=== PATIENT | female | born 1945 | race Caucasian/White ===

== ENCOUNTER 2017-10-02 14:24 | Observation (INO) | payer MEDICARE ==
[~2017-10-02 14:24] MED LIST: ISOVUE-370 76%-LOCM 1 ML ONE
[2017-10-02] MEDS ORDERED: Nitroglycerin 2% Ointment 1 INCH/1 GM Packet ONE (14:55)
[2017-10-02 15:00] LABS: #Basophils 0.1 thou/uL (0.0-0.2); #Eosinphils 0.1 thou/uL (0.0-0.7); #Lymphocytes 2.6 thou/uL (1.20-3.40); #Monocytes 1.6 thou/uL (0.11-0.59); #Neutrophils 8.1 thou/uL (1.40-6.50); %Basophils 0.6 % (0.0-1.0); %Lymphocytes 20.6 % (21.0-51.0); %Monocytes 13.2 % (0.0-10.0); %Neutrophils 64.6 % (42.0-75.0); Hemoglobin 13.8 g/dL (12.0-16.0); Mean Corpuscular HGB CONC 32.9 g/dL (32.0-36.0); Mean Corpuscular Hemoglobin 32.9 pg (27.0-31.0); Mean Platelet Volume 8.4 fL (7.4-10.4); Platelet Count 282 thou/uL (130-400); Red Blood Cell (RBC) Count 4.21 mill/uL (4.20-5.40); White Blood Cell (WBC) Count 12.5 thou/uL (4.8-10.8)
[2017-10-02 15:19] LABS: ALT (SGPT) 16 U/L (8-55); AST (SGOT) 14 U/L (5-34); Albumin 4.2 g/dL (3.4-4.8); Alkaline Phosphatase 107 U/L (40-150); Anion Gap 15 mmol/L (10-20); BUN (Urea Nitrogen) 15 mg/dL (9.8-20.1); Bilirubin, Total 0.5 mg/dL (0.2-1.2); CK (CPK) 34 U/L (29-168); Calc. Creatinine Clearance 0 mL/min (70-130); Calcium 9.9 mg/dL (7.8-10.44); Carbon Dioxide 23 mmol/L (23-31); Chloride 102 mmol/L (98-107); Estimated GFR-MDRD 75; Globulin 3.4 g/dL (2.4-3.5); Glucose 96 mg/dL (83-110); Lipase 52 U/L (8-78); Potassium 4.2 mmol/L (3.5-5.1); Protein, Total 7.6 g/dL (6.0-8.3); Sodium 136 mmol/L (136-145)
--- NOTE | 2017-10-02 15:22 | RAD ---
PORTABLE CHEST: 10/02/2017 PROVIDED CLINICAL HISTORY: Chest pain. COMPARISON: 06/20/2008 FINDINGS: Cardiac and mediastinal silhouette are within normal limits. Lungs appear clear. There is no pleura l fluid or pneumothorax apparent. IMPRESSION: No evidence for an acute cardiopulmonary process. POS: [facility]
[2017-10-02 15:23] LABS: CKMB 0.8 ng/mL (0-6.6); Troponin I Less than 0.010 ng/mL (< 0.028)
--- NOTE | 2017-10-02 18:03 | CT ---
CT PULMONARY ANGIOGRAM WITH IV CONTRAST AND 3D POSTPROCESSIN10/02/17 HISTORY: Chest pain. FINDINGS: There is poor opacification of the pulmonary artery vasculature. The exam is nondiagnostic for evalua tion of pulmonary embolism. The thoracic aorta is opacified without aneurysmal dissection. No pleural or pericardial effusions are seen. There is evidence of old granulomatous disease. No pneumothoraces , lobar consolidation, or other masses identified. There are degenerative changes in the spine. IMPRESSION: Exam is nondiagnostic for pulmonary embolism. POS: [facility]
[2017-10-02 18:21] LABS: Troponin I Less than 0.010 ng/mL (< 0.028)
[2017-10-02] MEDS ORDERED: Acetaminophen 325 MG TAB PO PRN (20:10)
[2017-10-02 20:32] VITALS: BMI 31.7
[2017-10-02 21:24] LABS: Troponin I Less than 0.010 ng/mL (< 0.028)
[2017-10-02] MEDS ORDERED: Ondansetron HCl/PF 4 MG/2 ML Vial IVP PRN (22:34)
--- NOTE | 2017-10-03 02:41 | HP ---
PRIMARY CARE PHYSICIAN: [facility]. CODE STATUS: The patient is DNR/DNI. Patient has stated "these are my wishes, also my children's, m y though is something different. TIME OF EVALUATION: 7:50 p.m. CHIEF COMPLAINT: Chest pain. HISTORY OF PRESENT ILLNESS: This is a 72-year-old female patient with a past medical history of skin cancer, TIA, coronary artery disease, hyperlipidemia, hypertension who came to the hospital after more ving chest pain that was located on the left lower rib cage, radiating to the back, when severe 6/10. The patient reported the pain was on and off, worsened by exertion. No alleviating factors. The p ain started around 2:00 p.m. Pain was dull in nature. REVIEW OF SYSTEMS: Constitutional: No fever, no chills. Generalized weakness. Respiratory: No co ugh or sputum production. No shortness of breath. Cardiovascular: No chest pain, no palpitations, no shortness of breath. Gastrointestinal: No nausea, vomiting, diarrhea, or abdominal pain. 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 Genitourinary: No burning on urination. Extremities : No leg swelling. All other systems were reviewed and were negative except for the findings geno samuel above. PAST MEDICAL HISTORY: She has a history of TIA, coronary artery disease, hyperlipidemia, high choles terol, hypertension, history of pneumonia, history of recurrent urinary tract infection. PAST SURGICAL HISTORY: Skin cancer, , hysterectomy, tonsillectomy. PSYCHIATRIC HISTORY: No previous psychiatric history. SOCIAL HISTORY: No alcohol. No drugs. No smoking history. DRUG ALLERGIES: MORPHINE, SULFA. REPORTED MEDICATIONS: No reported medications. PHYSICAL EXAMINATION: VITAL SIGNS: On presentation, blood pressure 140/58, with a heart rate of 92, respiratory rate was 2 0, temperature 99.4, pain was 8/10, oxygen saturation 98% on room air. GENERAL APPEARANCE: Patient is alert, oriented, no acute distress. HEENT: Normal conjunctivae. Moist oral mucosa. Anicteric. NECK: No JVD. RESPIRATORY: Bilateral air entry. No rales, no wheezing. Symmetric expansion. CARDIOVASCULAR: Normal rate, regular rhythm. No murmurs, no gallop, no edema. ABDOMEN: Soft, normal bowel sounds. MUSCULOSKELETAL: Baseline range of motion and strength. No tenderness. SKIN: Warm and intact. No pallor, no rash, no redness. NEUROLOGIC: Baseline sensorium. No evidence of any focal weakness. Baseline speech. Cranial nerve s seem to be intact. PSYCHIATRIC: The patient is in a good mood. No anxiety, oriented, optimal judgment. IMAGING: EKG was reviewed. The patient has normal sinus rhythm with left ventricular hypertrophy wi th repolarization abnormalities, QRS 88, [place] 126. Ventricular rate 90, QT corrected 413. Chest x-ray was done, it showed no evidence for any acute pulmonary process. The chest CT angio was done and re ported as nondiagnostic for pulmonary embolism. LABORATORY DATA: Labs are reviewed. The patient has white count 12.5, hemoglobin 13.9, MCV 100, kirt telet count 282. D-dimer 0.8. Chemistry was negative. LFTs were negative. Kidney function was nor mal. Beta natriuretic peptide was normal. Troponin was negative x3. ASSESSMENT AND PLAN: The patient was placed in the hospital with following medical problem: 1. Chest pain, rule out acute coronary syndrome. The patient has risk factors for coronary artery d isease, including hypertension, hyperlipidemia. We will monitor on tele, plan to do a stress test in the morning. The risks and benefits have been discussed with the patient and she is agreeable to go for testing in the morning. We will follow results, will treat accordingly. 2. Controlled hypertension, reconcile home medications and adjust treatment as needed. 3. Hyperlipidemia, low cholesterol diet is advised.
[2017-10-03 05:31] LABS: #Basophils 0.1 thou/uL (0.0-0.2); #Eosinphils 0.2 thou/uL (0.0-0.7); #Lymphocytes 2.6 thou/uL (1.20-3.40); #Monocytes 1.6 thou/uL (0.11-0.59); #Neutrophils 6.9 thou/uL (1.40-6.50); %Basophils 0.5 % (0.0-1.0); %Eosinophils 1.4 % (0.0-10.0); %Lymphocytes 23.1 % (21.0-51.0); %Monocytes 13.9 % (0.0-10.0); Hemoglobin 13.4 g/dL (12.0-16.0); Mean Corpuscular HGB CONC 34.1 g/dL (32.0-36.0); Mean Corpuscular Hemoglobin 33.5 pg (27.0-31.0); Mean Corpuscular Volume 98.5 fL (78.0-98.0); Mean Platelet Volume 8.5 fL (7.4-10.4); Platelet Count 265 thou/uL (130-400); RBC Distribution Width 12.1 % (11.5-14.5); Red Blood Cell (RBC) Count 3.99 mill/uL (4.20-5.40); White Blood Cell (WBC) Count 11.3 thou/uL (4.8-10.8)
[2017-10-03 05:48] LABS: Anion Gap 16 mmol/L (10-20); BUN (Urea Nitrogen) 14 mg/dL (9.8-20.1); Calc. Creatinine Clearance 86 mL/min (70-130); Calcium 9.1 mg/dL (7.8-10.44); Carbon Dioxide 20 mmol/L (23-31); Chloride 104 mmol/L (98-107); Estimated GFR-MDRD 82; Glucose 117 mg/dL (83-110); Potassium 3.7 mmol/L (3.5-5.1); Sodium 136 mmol/L (136-145)
[2017-10-03] MEDS ORDERED: Zolpidem Tartrate 5 MG TAB PO PRN (08:16)
[2017-10-03] MEDS ORDERED: Loratadine 10 MG TAB PO PRN (08:16)
[2017-10-03] MEDS ORDERED: Senokot 8.6 MG TAB PO PRN (08:16)
[2017-10-03] MEDS ORDERED: Eucerin (Mineral Oil/Petrolatum,White) 30 gm Jar TOP PRN (08:16)
[2017-10-03] MEDS ORDERED: Ondansetron ODT 4 MG TAB PO PRN (08:16)
[2017-10-03] MEDS ORDERED: Acetaminophen 325 MG TAB PO PRN (08:16)
[2017-10-03] MEDS ORDERED: Chloraseptic Spray 180 ml Bottle PO PRN (08:16)
[2017-10-03] MEDS ORDERED: Diabetic Tussin 200 MG/10 ML UDCUP PO PRN (08:16)
[2017-10-03] MEDS ORDERED: Milk Of Magnesia 30 ML UDCUP PO PRN (08:16)
[2017-10-03] MEDS ORDERED: Mag-Al 1200 mg/1200 mg/30 ML UDCUP PO PRN (08:16)
[2017-10-03] MEDS ORDERED: Nitroglycerin 0.4 MG TAB (25 Tab Bottle) SL PRN (08:16)
[2017-10-03] MEDS ORDERED: Artificial Tears 18 DROP/0.9 ML EA EYE PRN (08:16)
[2017-10-03] MEDS ORDERED: Loperamide HCl 2 MG CAP PO PRN (08:16)
[2017-10-03] MEDS ORDERED: Sodium Chloride 0.65% Nasal 44 ML BOT EA NARE PRN (08:16)
[2017-10-03] MEDS ORDERED: hydrALAZINE 20 MG/ML VIAL SLOW IVP PRN (08:16)
[2017-10-03] MEDS ORDERED: Famotidine 20 MG TAB PO PRN (08:16)
[2017-10-03 08:37] LABS: Cardiac Risk 3.6 (Less than 4.5)
[2017-10-03] MEDS ORDERED: Aspirin 325 MG TAB PO SCH (09:00)
[2017-10-03] MEDS ORDERED: Losartan 25 MG TAB PO SCH (09:00)
[2017-10-03] MEDS ORDERED: Enoxaparin Sodium 40 MG/0.4 ML SYRINGE SC SCH (09:00)
[2017-10-03] MEDS ORDERED: ADENOSINE 60 MG/20 ML VIAL ONE (09:56)
--- NOTE | 2017-10-03 13:16 | PDOC.PN ---
- Subjective Encounter Start Date: 10/03/17 Encounter Start Time: 07:30 -: old records requested/rev Patient seen and examined. No new complaints. No overnight events - Objective Resuscitation Status: Resuscitation Status DNR:Do Not Resuscitate MAR Reviewed: Yes Vital Signs & Weight: Vital Signs (12 hours) Temp Pulse Resp BP BP Pulse Ox 10/03/17 08:00 98.3 F 84 20 10/03/17 07:15 98.3 F 84 20 127/60 95 10/03/17 04:18 98.4 F 80 16 116/56 L 94 L Weight Weight 163 lb 1 oz I&O: 10/02/17 10/03/17 10/04/17 06:59 06:59 06:59 Intake Total 760 Output Total 400 Balance 360 Result Diagrams: 10/03/17 04:23 10/03/17 04:23 Radiology Reviewed by me: Yes EKG Reviewed by me: Yes Phys Exam - Physical Examination Constitutional: NAD HEENT: PERRLA, moist MMs, sclera anicteric Neck: no JVD, supple Respiratory: no wheezing, no rales, no rhonchi Cardiovascular: RRR, no significant murmur, no rub Gastrointestinal: soft, non-tender, no distention, positive bowel sounds Musculoskeletal: no edema, pulses present Neurological: non-focal, normal sensation, moves all 4 limbs Psychiatric: normal affect, A&O x 3 Skin: no rash, normal turgor Dx/Plan (1) Chest pain Code(s): R07.9 - CHEST PAIN, UNSPECIFIED Status: Acute (2) Hypertension Code(s): I10 - ESSENTIAL (PRIMARY) HYPERTENSION Status: Chronic (3) Obesity (BMI 30.0-34.9) Code(s): E66.9 - OBESITY, UNSPECIFIED Status: Chronic (4) Dyslipidemia Code(s): E78.5 - HYPERLIPIDEMIA, UNSPECIFIED Status: Chronic - Plan cont current plan of care, plan discussed w/ family * medication reviewed as below * symptomatic treatment * today stress test, if negative will discharge. Review of Systems - Review of Systems Eyes: negative: Pain, Vision Change, Conjunctivae Inflammation, Eyelid Inflammation, Redness, Other ENT: negative: Ear Pain, Ear Discharge, Nose Pain, Nose Discharge, Nose Congestion, Mouth Pain, Mouth Swelling, Throat Pain, Throat Swelling, Other Respiratory: negative: Cough, Dry, Shortness of Breath, Hemoptysis, SOB with Excertion, Pleuritic Pain, Sputum, Wheezing Cardiovascular: negative: chest pain, palpitations, orthopnea, paroxysmal nocturnal dyspnea, edema, light headedness, other Gastrointestinal: negative: Nausea, Vomiting, Abdominal Pain, Diarrhea, Constipation, Melena, Hematochezia, Other Genitourinary: negative: Dysuria, Frequency, Incontinence, Hematuria, Retention , Other Musculoskeletal: negative: Neck Pain, Shoulder Pain, Arm Pain, Back Pain, Hand Pain, Leg Pain, Foot Pain, Other Skin: negative: Rash, Lesions, Davis, Bruising, Other - Medications/Allergies Allergies/Adverse Reactions: Allergies Allergy/AdvReac Type Severity Reaction Status Date / Time morphine Allergy Rash Verified 10/02/17 22:02 Sulfa (Sulfonamide Allergy Rash Verified 10/02/17 22:04 Antibiotics) Medications: Current Medications Acetaminophen (Tylenol) 650 mg PO Q4H PRN PRN Reason: Headache/Fever or Mild Pain Al Hydroxide/Mg Hydroxide (Maalox) 15 ml PO Q4H PRN PRN Reason: Heartburn or Indigestion Artificial Tears (Tears Naturale) 0 drop EA EYE PRN PRN PRN Reason: Dry Eyes Aspirin (Aspirin) 325 mg PO DAILY [facility] Last Admin: 10/03/17 10:09 Dose: Not Given Enoxaparin Sodium (Lovenox) 40 mg SC 0900 [facility] Last Admin: 10/03/17 10:09 Dose: Not Given Famotidine (Pepcid) 20 mg PO BIDPRN PRN PRN Reason: Heartburn or Indigestion Guaifenesin (Robitussin Sf) 200 mg PO Q4H PRN PRN Reason: Cough Hydralazine HCl (Apresoline) 10 mg SLOW IVP Q4H PRN PRN Reason: Systolic BP > 180 Loperamide HCl (Imodium) 2 mg PO PRN PRN PRN Reason: Diarrhea/Loose Stools Loratadine (Claritin) 10 mg PO DAILYPRN PRN PRN Reason: Sinus Symptoms Losartan Potassium (Cozaar) 25 mg PO BID [facility] Last Admin: 10/03/17 10:10 Dose: Not Given Magnesium Hydroxide (Milk Of Magnesium) 30 ml PO DAILYPRN PRN PRN Reason: Constipation Mineral Oil/White Petrolatum (Eucerin Cream) 0 gm TOP BIDPRN PRN PRN Reason: Dry Skin Nitroglycerin (Nitrostat) 0.4 mg SL Q5MIN PRN PRN Reason: Chest Pain Ondansetron HCl (Zofran) 4 mg IVP Q6H PRN PRN Reason: Nausea/Vomiting Ondansetron HCl (Zofran Odt) 4 mg PO Q6H PRN PRN Reason: Nausea/Vomiting Phenol (Chloraseptic Mazama 180 Ml Bot) 0 ml PO PRN PRN PRN Reason: Sore Throat Senna (Senokot) 2 tab PO HSPRN PRN PRN Reason: Constipation Sodium Chloride ([employer] Nasal Mazama 0.65%) 0 ml EA NARE QIDPRN PRN PRN Reason: Nasal Congestion Zolpidem Tartrate (Ambien) 5 mg PO HSPRN PRN PRN Reason: Insomnia
[2017-10-03 14:10] VITALS: BP 135/60; TEMP 98.6
--- NOTE | 2017-10-03 15:15 | DIS ---
DATE OF ADMISSION: 10/02/2017 DATE OF DISCHARGE: 10/03/2017 PRIMARY CARE PHYSICIAN: [facility]. DISCHARGE DISPOSITION: Home. PRIMARY DISCHARGE DIAGNOSIS: Chest pain, ruled out acute coronary syndrome. SECONDARY DISCHARGE DIAGNOSES: Obesity with BMI 31, hypertension, dyslipidemia. PRIMARY PROCEDURE/OPERATION: None. RADIOLOGICAL INVESTIGATION: Stress test was negative for any reversible ischemia. CT angiography ne gative for PE. Chest x-ray normal. SIGNIFICANT LABORATORY DATA: WBC 11.3, hemoglobin 13.4, platelet 265,000. D-dimer 0.87. Sodium 136 , creatinine 0.70, calcium 9.1. Cardiac enzymes negative x3. BNP 35.4, LDL 139. LFT normal. DISCHARGE MEDICATIONS: Ecotrin 81 mg p.o. daily, Lipitor 10 mg p.o. at bedtime, Prinzide 10/12.5 one tablet p.o. at bedtime, losartan 25 mg p.o. b.i.d. CONTRAINDICATIONS: None. CODE STATUS: Full code. INPATIENT CONSULTANTS: None. ALLERGIES: MORPHINE and SULFA DRUGS. DISCHARGE PLAN: Post hospital, the patient will follow up with primary care physician. HOSPITAL COURSE: A 72-year-old female who was admitted to the hospital for chest pain. Please see Leonidas Padron for further detail. The patient underwent stress test that was negative. Sanchez zamora in the emergency room, she had elevated D-dimer and that is why CT angiography was done, which wa s negative for PE. Her cardiac enzyme remained negative. Her telemetry remained unremarkable. Her stress test came back normal. The patient had elevated LDL and that is why we prescribed Lipitor upon discharge. She will continue all her blood pressure medication and we added Ecotrin. Healthy lifestyle measures discussed with zbigniew marinelli patient. The patient is seen and examined at bedside today. Please see my progress note from today for furthe r detail. The patient is medically stable for discharge today.
--- NOTE | 2017-10-03 15:52 | NM ---
RADIONUCLIDE STRESS REST MYOCARDIAL PERFUSION SCAN WITH CT ATTENUATION CORRECTION AND SPECT IMAGING LEFT VENTRICULAR WALL MOTION EVALUATION AND EJECTION FRACTION 10/03/17 HISTORY: Chest pain. FINDINGS: Adenosine protocol. Homogeneous uptake of radiotracer throughout the left ventricular myocardium. No focal perfusion defect or reversibility. QGS analysis of gated SPECT images shows no focal wall motion abnormalities. Left ventricular ejectio n fraction calculated at 75%. IMPRESSION: Normal myocardial perfusion scan. Normal LVEF. POS: [facility]
[2017-10-03] MEDS ORDERED: Atorvastatin Calcium 10 MG TAB PO SCH (21:00)
--- NOTE | 2017-10-06 14:03 | STRESS ---
Acquisition Time: 2017-10-03 11:34:08 Total Exercise Time: 00:04:00 Test Indications: CHEST PAIN Medications: Protocol: ADENOSINE Max HR: 114 BPM 76% of Pred: 149 BPM Max BP: 118/082 mmHG Max Work Load: 1.0 METS RESTING ECG: NORMAL SINUS RHYTHM AT 81 BPM WITH LEFT VENTRICULAR HYPERTROPHY SYMPTOMS: CHEST PAIN, NAUSEA/VOMITING HYPOTENSIVE BP RESPONSE ECTOPY: NONE ECG STRESS: NO SIGNIFICANT CHANGES INTERPRETATION: AWAIT NUCLEAR IMAGES FOR DEFINITIVE DIAGNOSIS COMMENTS: HEART RATE TO 40 BPM FOR 4 SECONDS DURING ADENOSINE INFUSION-OCCURRED WITH VOMITING Confirmed by VASQUEZ FLETCHER ([id number]), graphic editor LAINE MARCANO ([id number]) on 10/06/2017 2:03:13 PM Referred By: MD Isacc MURDOCK Confirmed By:VASQUEZ FLETCHER
== END 2017-10-03 15:00 | disposition home or self-care (01) ==
LOC: ERS 14:24 → 2SW 16:34
PROVIDERS: ADMIT Internal Medicine; ATTEND Internal Medicine
DX: R07.9 Chest pain, unspecified (principal); I25.10 Atherosclerotic heart disease of native coronary artery without angina pectoris; E78.5 Hyperlipidemia, unspecified; I10 Essential (primary) hypertension; E78.00 Pure hypercholesterolemia, unspecified; E66.9 Obesity, unspecified; Z68.31 Body mass index [BMI] 31.0-31.9, adult; Z86.73 Personal history of transient ischemic attack (TIA), and cerebral infarction without residual deficits; Z87.440 Personal history of urinary (tract) infections; Z88.2 Allergy status to sulfonamides; Z88.5 Allergy status to narcotic agent; Z66 Do not resuscitate
CPT/HCPCS: 71045; 71275; 78452; 80048; 80053; 80061; 82550; 82553; 83690; 83880; 84484 ×2; 85025 ×2; 85379; 93005; 93017; 94760; 96360; 96361 ×2; 99285; A9500; G0378 ×2; 36415; J0153; J1650

== ENCOUNTER 2017-12-10 09:01 | Outpatient (CLI) | payer MEDICARE ==
--- NOTE | 2017-12-10 09:50 | RAD ---
LEFT KNEE 4 VIEWS: HISTORY: A 72-year-old female with a history of left knee pain. FINDINGS/IMPRESSION: Degenerative changes are noted of the left knee joint without fracture, dislocation, or other acute p rocess. POS: [facility]
== END 2017-12-10 09:02 | disposition home or self-care (01) ==
LOC: BICRAD 09:01
PROVIDERS: ATTEND Family Medicine
DX: M25.562 Pain in left knee (principal); M17.12 Unilateral primary osteoarthritis, left knee

== ENCOUNTER 2018-06-05 12:57 | Outpatient (CLI) | payer MEDICARE ==
--- NOTE | 2018-06-05 13:56 | MMO ---
Bilateral MAMMO Bilat Screen [facility]. CLINICAL HISTORY: Patient is 73 years old and is seen for screening. The patient has the following family history of breast cancer: maternal grandmother. The patient has a history of melanoma. VIEWS: The views performed were: bilateral craniocaudal with tomosynthesis and bilateral mediolateral oblique with tomosynthesis. MAMMOGRAM FINDINGS: There are scattered fibroglandular densities. Finding 1: There are benign appearing densities seen in both breasts. Finding 2: There are benign appearing and vascular calcifications seen in both breasts. There are no suspicious masses, suspicious calcifications, or new areas of architectural distortion. IMPRESSION: THERE IS NO MAMMOGRAPHIC EVIDENCE OF MALIGNANCY. A ROUTINE FOLLOW-UP MAMMOGRAM IN 1 YEAR IS RECOMMENDED. THE RESULTS OF THIS EXAM WERE SENT TO THE PATIENT. ACR BI-RADS Category 2 - Benign finding MAMMOGRAPHY NOTE: 1. A negative mammogram report should not delay a biopsy if a dominant of clinically suspicious mass is present. 2. Approximately 10% to 15% of breast cancers are not detected by mammography. 3. Adenosis and dense breasts may obscure an underlying neoplasm.
== END 2018-06-05 12:58 | disposition home or self-care (01) ==
LOC: BICMAMMO 12:57
PROVIDERS: ATTEND Family Medicine
DX: Z12.31 Encounter for screening mammogram for malignant neoplasm of breast (principal); Z80.3 Family history of malignant neoplasm of breast; Z85.820 Personal history of malignant melanoma of skin
CPT/HCPCS: 77063; 77067

== ENCOUNTER 2019-03-25 12:00 | Outpatient (CLI) | payer MEDICARE ==
--- NOTE | 2019-03-25 13:45 | RAD ---
RIGHT KNEE FOUR VIEWS: HISTORY: Injury to right knee 1-1/2 months ago. Pain in right knee. FINDINGS: Minimal scattered osteophytes are present. There is no fracture, dislocation or other osseous abnorma lity. No significant joint space narrowing is appreciated. IMPRESSION: No acute osseous abnormality. POS: [facility]
== END 2019-03-25 12:01 | disposition home or self-care (01) ==
LOC: BICRAD 12:00
PROVIDERS: ATTEND Family Medicine
DX: M25.561 Pain in right knee (principal)

== ENCOUNTER 2021-07-06 15:37 | Outpatient (CLI) | payer MEDICARE | END 2021-07-06 15:38 | disposition home or self-care (01) | LOC: BICRAD 15:37 | PROVIDERS: ATTEND Internal Medicine | DX: R61 Generalized hyperhidrosis (principal) | CPT/HCPCS: 71046 ==

== ENCOUNTER 2023-08-11 11:07 | Emergency (ER) | payer MEDICARE ==
[2023-08-11] MEDS ORDERED: Acetaminophen 500 MG TAB ONE (12:36)
== END 2023-08-11 14:10 | disposition home or self-care (01) ==
LOC: ERS 11:07
DX: R68.84 Jaw pain (principal); M79.641 Pain in right hand; M79.604 Pain in right leg; M79.644 Pain in right finger(s); Y04.8XXA Assault by other bodily force, initial encounter; E78.00 Pure hypercholesterolemia, unspecified; I10 Essential (primary) hypertension; Z79.899 Other long term (current) drug therapy
CPT/HCPCS: 70450; 70486; 72125

== ENCOUNTER 2024-02-24 14:10 | Inpatient (IN) | payer OTHER ==
[2024-02-24] MEDS ORDERED: Iopamidol-370 76% 500 ML MDV (1 ML CHARGE) ONE (14:13)
[2024-02-24] MEDS ORDERED: Ketorolac Tromethamine 30 MG (1 mL) VIAL ONE (14:46)
[2024-02-24] MEDS ORDERED: Ondansetron PF 4 MG/2 ML Vial ONE (14:46)
[2024-02-24] MEDS ORDERED: Piperacillin/Tazobactam 3.375 GM VIAL ONE (15:00)
[2024-02-24 15:07] LABS: #Basophils 0.03 10x3/uL (0.0-0.2); %Basophils 0.3 % (0.0-1.0); %Eosinophils 0.9 % (0.0-10.0); %Lymphocytes 4.4 % (21.0-51.0); %Monocytes 10.5 % (0.0-10.0); %Neutrophils 82.6 % (42.0-75.0); Hemoglobin 12.5 g/dL (12.0-16.0); Mean Corpuscular HGB CONC 33.8 g/dL (32.0-36.0); Mean Corpuscular Hemoglobin 32.6 pg (27.0-31.0); Mean Corpuscular Volume 96.4 fL (78.0-98.0); Mean Platelet Volume 11.3 fL (7.4-10.4); Platelet Count 216 10x3/uL (130-400); RBC Distribution Width 13.3 % (11.5-14.5); Red Blood Cell (RBC) Count 3.84 mill/uL (4.20-5.40)
[2024-02-24 15:22] LABS: ALT (SGPT) 25 U/L (8-55); AST (SGOT) 26 U/L (5-34); Albumin 3.4 g/dL (3.4-4.8); Alkaline Phosphatase 120 U/L (40-110); Anion Gap 14 mmol/L (10-20); BUN (Urea Nitrogen) 7 mg/dL (9.8-20.1); Bilirubin, Total 0.3 mg/dL (0.2-1.2); Calc. Creatinine Clearance 0 mL/min (70-130); Calcium 8.6 mg/dL (7.8-10.44); Carbon Dioxide 20 mmol/L (23-31); Chloride 109 mmol/L (98-107); Estimated GFR 91; Globulin 3.6 g/dL (2.4-3.5); Glucose 130 mg/dL (83-110); Lipase 18 U/L (8-78); Magnesium 1.6 mg/dL (1.6-2.6); Potassium 3.6 mmol/L (3.5-5.1); Sodium 139 mmol/L (136-145)
[2024-02-24 15:28] LABS: Troponin I 0.024 ng/mL (< 0.028)
[2024-02-24 15:37] LABS: INR-International Normal Ratio 1.2; PTT 31.6 sec (22.9-36.1); Prothrombin Time 14.8 sec (12.0-14.7)
[2024-02-24 17:10] LABS: Bilirubin Negative (Negative); Blood, Urine Negative (Negative); CAUTI Indications for Culture Dysuria,urgency,freq; Clarity Clear (Clear); Glucose, Urine (Dipstick) Normal (Negative); Ketone, Urine Negative (Negative); Leukocyte 250 Leu/uL (Negative); Nitrite 2+ (Negative); Protein, Urine (Dipstick) Negative (Neg-Trace); RBC/HPF 0-3 HPF (0-3); Specific Gravity, Urine 1.021 (1.002-1.036); Squamous Epithelial None Seen HPF (0-3); Urobilinogen Normal mg/dL (Less than 2)
[2024-02-24 17:20] LABS: Bacteria/HPF Rare-Few HPF (None Seen); Urine Culture Reflex No No
[2024-02-24 17:46] LABS: Lactic Acid 0.77 mmol/L (0.5-2.2)
[2024-02-24] MEDS ORDERED: Acetaminophen 650 MG Suppository PR PRN (17:52)
[2024-02-24] MEDS ORDERED: Ipratropium/Albuterol 3 ML NEB NEB PRN (18:15)
[2024-02-24] MEDS: Magnesium 2 GM/50 ML(in water) 2 GM in Premix 1 BAG IVPB SCH (21:00)
[2024-02-24] MEDS: Acetaminophen 325 MG TAB PO PRN (21:03)
[2024-02-24 21:19] LABS: Legionella Urinary Ag Negative (Negative); Strep pneumo Urine Ag NEGATIVE (NEGATIVE)
[2024-02-24 21:21] LABS: Influenza A by NAA DETECTED (NotDetected); Influenza B by NAA Not Detected (NotDetected); RSV by NAA Not Detected (NotDetected); SARS-CoV-2 NAA Rapid Test Not Detected (NotDetected)
[2024-02-24 22:16] VITALS: BMI 26.2
[2024-02-24] MEDS: Phenazopyridine HCl 100 MG TAB PO SCH (22:26)
[2024-02-24] MEDS: cefTRIAXone\\ROCEPHIN 1 GM in Sodium Chloride 0.9% 100 ML IVPB SCH (22:27)
[2024-02-24] MEDS: GUAIFENESIN SF SOLN 200 MG/10 ML UDCUP PO PRN (22:27)
[2024-02-24] MEDS: Oseltamivir 75 MG CAP PO SCH (22:27)
[2024-02-25] MEDS: Azithromycin 500 MG in Sodium Chloride 0.9% 250 ML 250 ML IVPB SCH (00:08)
[2024-02-25 06:15] LABS: #Basophils Less than 0.03 10x3/uL (0.0-0.2); #Eosinophils Less than 0.03 10x3/uL (0.0-0.7); %Basophils 0.3 % (0.0-1.0); %Eosinophils 0.2 % (0.0-10.0); %Lymphocytes 8.6 % (21.0-51.0); %Monocytes 12.8 % (0.0-10.0); %Neutrophils 77.2 % (42.0-75.0); Hematocrit 35.5 % (36.0-47.0); Hemoglobin 11.8 g/dL (12.0-16.0); Mean Corpuscular HGB CONC 33.2 g/dL (32.0-36.0); Mean Corpuscular Hemoglobin 32.5 pg (27.0-31.0); Mean Corpuscular Volume 97.8 fL (78.0-98.0); Mean Platelet Volume 11.9 fL (7.4-10.4); Platelet Count 173 10x3/uL (130-400); RBC Distribution Width 13.8 % (11.5-14.5); Red Blood Cell (RBC) Count 3.63 mill/uL (4.20-5.40)
[2024-02-25 06:40] LABS: Anion Gap 11 mmol/L (10-20); BUN (Urea Nitrogen) 6 mg/dL (9.8-20.1); Calc. Creatinine Clearance 78 mL/min (70-130); Carbon Dioxide 20 mmol/L (23-31); Chloride 108 mmol/L (98-107); Estimated GFR 90; Glucose 107 mg/dL (83-110); Potassium 3.4 mmol/L (3.5-5.1); Sodium 136 mmol/L (136-145)
[2024-02-25] MEDS ORDERED: Electrolyte Replacement Protocol 1 EACH FS SCH ×2 (07:45)
[2024-02-25] MEDS ORDERED: Electrolyte Replacement Protocol FS PRN (08:00)
[2024-02-25] MEDS: Oseltamivir 75 MG CAP PO SCH (08:44)
[2024-02-25] MEDS: Aspirin 81 mg Enteric Coated Tablet PO SCH (08:44)
[2024-02-25] MEDS: Phenazopyridine HCl 100 MG TAB PO SCH (08:45)
[2024-02-25] MEDS: Potassium Chloride 20 MEQ TAB PO SCH (08:45)
[2024-02-25] MEDS ORDERED: traMADol HCl 50 MG TAB PO PRN (08:46)
[2024-02-25] MEDS: guaiFENesin ER 600 MG TAB PO SCH (10:06)
[2024-02-25 16:11] LABS: Potassium 4.1 mmol/L (3.5-5.1)
[2024-02-25] MEDS: Rosuvastatin 10 MG TAB PO SCH (20:36)
[2024-02-26 07:32] LABS: #Basophils Less than 0.03 10x3/uL (0.0-0.2); #Eosinophils Less than 0.03 10x3/uL (0.0-0.7); %Basophils 0.4 % (0.0-1.0); %Eosinophils 0.2 % (0.0-10.0); %Lymphocytes 27.7 % (21.0-51.0); %Monocytes 12.9 % (0.0-10.0); %Neutrophils 57.7 % (42.0-75.0); Hematocrit 37.8 % (36.0-47.0); Hemoglobin 12.3 g/dL (12.0-16.0); Mean Corpuscular HGB CONC 32.5 g/dL (32.0-36.0); Mean Corpuscular Hemoglobin 32.5 pg (27.0-31.0); Platelet Count 154 10x3/uL (130-400); RBC Distribution Width 13.9 % (11.5-14.5); Red Blood Cell (RBC) Count 3.78 mill/uL (4.20-5.40)
[2024-02-26 07:46] LABS: Anion Gap 12 mmol/L (10-20); BUN (Urea Nitrogen) 6 mg/dL (9.8-20.1); Calc. Creatinine Clearance 82 mL/min (70-130); Carbon Dioxide 22 mmol/L (23-31); Chloride 108 mmol/L (98-107); Estimated GFR 91; Glucose 85 mg/dL (83-110); Potassium 3.9 mmol/L (3.5-5.1); Sodium 138 mmol/L (136-145)
[2024-02-26] MEDS: Hydrochlorothiazide 25 MG TAB PO SCH (08:09)
[2024-02-26] MEDS: Amlodipine 5 MG TAB PO SCH (08:09)
[2024-02-26] MEDS: methylPREDNISolone Sod Succ 40 MG VIAL IVP SCH (10:07)
[2024-02-26] MEDS: Ondansetron PF 4 MG/2 ML Vial IVP PRN (10:43)
[2024-02-26] MEDS: Albuterol 200 PUFF (6.7GM INHALER) INH PRN (12:53)
[2024-02-27 05:30] LABS: #Basophils Less than 0.03 10x3/uL (0.0-0.2); #Eosinophils Less than 0.03 10x3/uL (0.0-0.7); %Basophils 0.2 % (0.0-1.0); %Lymphocytes 20.9 % (21.0-51.0); %Monocytes 8.1 % (0.0-10.0); %Neutrophils 69.9 % (42.0-75.0); Hemoglobin 14.7 g/dL (12.0-16.0); Mean Corpuscular HGB CONC 33.4 g/dL (32.0-36.0); Mean Corpuscular Hemoglobin 31.7 pg (27.0-31.0); Platelet Count 226 10x3/uL (130-400); RBC Distribution Width 13.2 % (11.5-14.5); Red Blood Cell (RBC) Count 4.63 mill/uL (4.20-5.40)
[2024-02-27 05:57] LABS: Anion Gap 16 mmol/L (10-20); BUN (Urea Nitrogen) 9 mg/dL (9.8-20.1); Calc. Creatinine Clearance 76 mL/min (70-130); Calcium 9.2 mg/dL (7.8-10.44); Carbon Dioxide 19 mmol/L (23-31); Chloride 101 mmol/L (98-107); Estimated GFR 90; Glucose 169 mg/dL (83-110); Potassium 4.2 mmol/L (3.5-5.1); Sodium 132 mmol/L (136-145)
[2024-02-27 08:10] VITALS: BP 116/75; TEMP 97.4
== END 2024-02-27 10:45 | disposition home or self-care (01) | DRG 871 ==
LOC: ERS 14:10 → T4-A 18:11
PROVIDERS: ADMIT Internal Medicine; ATTEND Family Medicine
DX: A41.9 Sepsis, unspecified organism (principal); J10.00 Influenza due to other identified influenza virus with unspecified type of pneumonia; N39.0 Urinary tract infection, site not specified; I25.10 Atherosclerotic heart disease of native coronary artery without angina pectoris; I10 Essential (primary) hypertension; Z88.2 Allergy status to sulfonamides; Z88.8 Allergy status to other drugs, medicaments and biological substances; Z90.710 Acquired absence of both cervix and uterus; Z90.89 Acquired absence of other organs; Z79.899 Other long term (current) drug therapy; E78.00 Pure hypercholesterolemia, unspecified; Z79.82 Long term (current) use of aspirin
CPT/HCPCS: 0241U; 36415; 51701; 71045; 71275; 80048; 80053; 81001; 83605; 83690; 83735; 83880; 84443; 84484; 85025; 85610; 85730; 87040; 87086; 87449; 87899; 93005; 96374; 96375; J0456; J0696; J1885; J2405; J2543; J2919; J3475; J7050

== ENCOUNTER 2024-03-09 10:33 | Outpatient (CLI) | payer OTHER | END 2024-03-09 10:34 | disposition home or self-care (01) | LOC: BICRAD 10:33 | PROVIDERS: ATTEND Nurse Practitioner Family | DX: R06.02 Shortness of breath (principal); J98.4 Other disorders of lung | CPT/HCPCS: 71046 ==

== ENCOUNTER 2024-09-13 09:30 | Inpatient (IN) | payer OTHER ==
[2024-09-13 11:13] LABS: #Basophils 0.05 10x3/uL (0.0-0.2); #Eosinophils 0.15 10x3/uL (0.0-0.7); #Monocytes 0.98 10x3/uL (0.11-0.59); #Neutrophils 4.76 10x3/uL (1.40-6.50); %Basophils 0.6 % (0.0-1.0); %Eosinophils 1.9 % (0.0-10.0); %Lymphocytes 23.3 % (21.0-51.0); %Monocytes 12.5 % (0.0-10.0); %Neutrophils 60.9 % (42.0-75.0); Hematocrit 40.4 % (36.0-47.0); Hemoglobin 13.5 g/dL (12.0-16.0); Mean Corpuscular Hemoglobin 32.8 pg (27.0-31.0); Mean Corpuscular Volume 98.1 fL (78.0-98.0); Platelet Count 260 10x3/uL (130-400); Red Blood Cell (RBC) Count 4.12 mill/uL (4.20-5.40); White Blood Cell (WBC) Count 7.82 10x3/uL (4.8-10.8)
[2024-09-13 11:27] LABS: Anion Gap 12 mmol/L (10-20); BUN (Urea Nitrogen) 10 mg/dL (9.8-20.1); Calc. Creatinine Clearance 0 mL/min (70-130); Calcium 9.3 mg/dL (7.8-10.44); Carbon Dioxide 25 mmol/L (23-31); Chloride 104 mmol/L (98-107); Glucose 101 mg/dL (83-110); Potassium 4.2 mmol/L (3.5-5.1); Sodium 137 mmol/L (136-145)
[2024-09-14] MEDS ORDERED: PHENYLEPHRINE-NS 100 MCG/ML 10 ML SYRINGE ONE ×3 (06:35→10:48)
[2024-09-14] MEDS ORDERED: Heparin 10,000 UNITS/1 ML VIAL 30,000 UNITS in Sodium Chloride 0.9% 1,000 ML FS SCH (06:45)
[2024-09-14] MEDS ORDERED: CEFAZOLIN 2 GM VIAL ONE (06:53)
[2024-09-14] MEDS ORDERED: PROPOFOL 20 ML ONE (07:13)
[2024-09-14] MEDS ORDERED: Rocuronium Bromide 10 MG/ML (10ML VIAL) ONE ×2 (07:13→10:05)
[2024-09-14] MEDS ORDERED: Heparin 5,000 UNITS/ML VIAL ONE (08:08)
[2024-09-14] MEDS ORDERED: Thrombin 5000 UNITS/5 ML VIAL ONE (08:08)
[2024-09-14] MEDS ORDERED: Heparin 30,000 units/30 ml VIAL ONE (08:08)
[2024-09-14] MEDS ORDERED: Cardioplegic Soln 1,000 ML BAG ONE (08:08)
[2024-09-14] MEDS ORDERED: Ondansetron PF 4 MG/2 ML Vial ONE (10:05)
[2024-09-14] MEDS ORDERED: NOREPINEPHRINE 8 MG/250 ML-D5W 250 ML IVPB PRN (11:01)
[2024-09-14] MEDS ORDERED: Hetastarch 6% 500 ML 500 ML IVPB PRN (11:01)
[2024-09-14] MEDS ORDERED: Nitroglycerin 50 MG/250 ML BOT 250 ML IVPB PRN (11:01)
[2024-09-14] MEDS ORDERED: Gabapentin 100 MG CAP PO SCH ×3 (11:01→15:00)
[2024-09-14] MEDS ORDERED: Potassium Chloride 20 MEQ (100 mL) BAG IVPB PRN (11:01)
[2024-09-14] MEDS ORDERED: Albumin 5% 12.5 GM (250 mL) BOT IVPB PRN (11:01)
[2024-09-14 11:12] LABS: Actual Bicarbonate (HCO3a) 19.4 mEq/L (22-28); Base Excess (BEa) -5.4 mEq/L (-2.0 to +3.0); CO2 Tension 35.5 mmHg (35.0-45.0); Calcium, Ionized (arterial) 1.03 mmol/L (1.12-1.30); Hematocrit-ABG 31 % (36.0-47.0); Hemoglobin (Hb) 10.4 g/dL (12.0-16.0); O2 Tension (PaO2), arterial 133.5 mmHg (> 70.0); Potassium - ABG Lab 3.98 mmol/L (3.70-5.30); pH, Arterial 7.356 (7.35-7.45)
[2024-09-14 11:13] LABS: ALV-art Gradient 249.925 mmHg (0-20); Puncture Site Arterial Line
[2024-09-14] MEDS ORDERED: Dextrose 50% Abboject 50 ML SYRINGE SLOW IVP PRN (11:15)
[2024-09-14] MEDS ORDERED: Glucagon 1 MG/ML KIT SC PRN (11:15)
[2024-09-14] MEDS: Ketorolac Tromethamine 30 MG (1 mL) VIAL IVP SCH (11:29)
[2024-09-14] MEDS: Magnesium 2 GM/50 ML(in water) 1 GM in Premix 1 BAG IVPB SCH (11:29)
[2024-09-14] MEDS: D5 1/2 NS w/20 mEq KCL 1,000 ML IV SCH (11:30)
[2024-09-14 11:33] LABS: Hematocrit 28.1 % (36.0-47.0); Hemoglobin 9.3 g/dL (12.0-16.0); Mean Corpuscular Hemoglobin 32.9 pg (27.0-31.0); Mean Corpuscular Volume 99.3 fL (78.0-98.0); Platelet Count 169 10x3/uL (130-400); Red Blood Cell (RBC) Count 2.83 mill/uL (4.20-5.40); White Blood Cell (WBC) Count 31.28 10x3/uL (4.8-10.8)
[2024-09-14 11:40] LABS: INR-International Normal Ratio 1.5; PTT 32.2 sec (22.9-36.1); Prothrombin Time 18.3 sec (12.0-14.7)
[2024-09-14 11:53] LABS: Anion Gap 11 mmol/L (10-20); BUN (Urea Nitrogen) 7 mg/dL (9.8-20.1); Calc. Creatinine Clearance 0 mL/min (70-130); Calcium 6.5 mg/dL (7.8-10.44); Carbon Dioxide 19 mmol/L (23-31); Chloride 117 mmol/L (98-107); Glucose 168 mg/dL (83-110); Potassium 4.1 mmol/L (3.5-5.1); Sodium 143 mmol/L (136-145)
[2024-09-14] MEDS: Albumin 5% 12.5 GM (250 mL) BOT IVPB PRN (12:23)
[2024-09-14 12:25] LABS: Burr Cells MODERATE= 6-15 cells HPF (0-1); Macrocytosis SLIGHT = 6-15 cells HPF (0-5); Nucleated RBC (Manual Ct) 1 % (0); Platelet Adequacy Comment Platelets Normal; Poikilocytosis MARKED = >30 cells HPF (0-5); Polychromasia SLIGHT = 2-3 cells HPF (0-2); Smudge Cells 3.8 %
[2024-09-14 15:30] LABS: Actual Bicarbonate (HCO3a) 17.7 mEq/L (22-28); Base Excess (BEa) -5.2 mEq/L (-2.0 to +3.0); CO2 Tension 27.2 mmHg (35.0-45.0); Calcium, Ionized (arterial) 1.03 mmol/L (1.12-1.30); Hematocrit-ABG 35 % (36.0-47.0); Hemoglobin (Hb) 11.9 g/dL (12.0-16.0); O2 Tension (PaO2), arterial 103.9 mmHg (> 70.0); Potassium - ABG Lab 3.88 mmol/L (3.70-5.30); pH, Arterial 7.432 (7.35-7.45)
[2024-09-14 15:36] LABS: ALV-art Gradient 147.300 mmHg (0-20); Puncture Site Arterial Line
[2024-09-14 16:15] LABS: Hematocrit 33.2 % (36.0-47.0); Hemoglobin 11.1 g/dL (12.0-16.0)
[2024-09-14 16:26] LABS: Potassium 4.1 mmol/L (3.5-5.1)
[2024-09-14] MEDS: Acetaminophen 325 MG TAB PO PRN (19:02)
[2024-09-14 21:10] VITALS: BMI 34.2
[2024-09-14] MEDS: Aspirin 325 MG TAB PO SCH (21:36)
[2024-09-14] MEDS: Famotidine/PF 20 mg/2ml Vial SLOW IVP SCH (21:46)
[2024-09-15 04:26] LABS: #Basophils Less than 0.03 10x3/uL (0.0-0.2); #Eosinophils Less than 0.03 10x3/uL (0.0-0.7); #Monocytes 1.82 10x3/uL (0.11-0.59); #Neutrophils 15.84 10x3/uL (1.40-6.50); %Basophils 0.1 % (0.0-1.0); %Eosinophils 0.0 % (0.0-10.0); %Lymphocytes 4.4 % (21.0-51.0); %Monocytes 9.7 % (0.0-10.0); %Neutrophils 84.9 % (42.0-75.0); Hematocrit 29.4 % (36.0-47.0); Hemoglobin 9.6 g/dL (12.0-16.0); Mean Corpuscular Hemoglobin 32.5 pg (27.0-31.0); Mean Corpuscular Volume 99.7 fL (78.0-98.0); Platelet Count 169 10x3/uL (130-400); Red Blood Cell (RBC) Count 2.95 mill/uL (4.20-5.40); White Blood Cell (WBC) Count 18.67 10x3/uL (4.8-10.8)
[2024-09-15 05:20] LABS: Anion Gap 13 mmol/L (10-20); BUN (Urea Nitrogen) 9 mg/dL (9.8-20.1); Calc. Creatinine Clearance 104 mL/min (70-130); Calcium 7.4 mg/dL (7.8-10.44); Carbon Dioxide 17 mmol/L (23-31); Chloride 114 mmol/L (98-107); Glucose 168 mg/dL (83-110); Potassium 4.2 mmol/L (3.5-5.1); Sodium 140 mmol/L (136-145)
[2024-09-15] MEDS: Pantoprazole 40 MG DR.TAB PO SCH (07:50)
[2024-09-15] MEDS: Aspirin 325 MG TAB PO SCH (07:51)
[2024-09-15] MEDS: Magnesium 2 GM/50 ML(in water) 1 GM in Premix 1 BAG IVPB SCH (09:23)
[2024-09-15] MEDS ORDERED: diphenhydrAMINE 25 MG CAP PO PRN (13:44)
[2024-09-15] MEDS ORDERED: Artificial Tear Ophth Sol 15 ML BOT EA EYE PRN (13:44)
[2024-09-15] MEDS ORDERED: Mineral Oil ENEMA PR PRN (13:44)
[2024-09-15] MEDS ORDERED: Nitroglycerin 0.4 MG TAB (25 Tab Bottle) SL PRN (13:44)
[2024-09-15] MEDS: Mag-Al 1200 mg/1200 mg/30 ML UDCUP PO PRN (16:32)
[2024-09-15] MEDS: Ketorolac Tromethamine 30 MG (1 mL) VIAL IVP SCH (18:32)
[2024-09-15] MEDS: Mupirocin 1 GM TUBE TP SCH (21:09)
[2024-09-16] MEDS: Enoxaparin 30 MG (0.3 mL) SYRINGE SC SCH (08:54)
[2024-09-17] MEDS: Furosemide 20 MG TAB PO SCH (14:40)
[2024-09-17] MEDS: Guaifenesin DM 100-10/5 ML UDCUP PO PRN (20:55)
[2024-09-18] MEDS: Furosemide 20 MG TAB PO SCH (09:37)
[2024-09-19 12:32] LABS: Hematocrit 29.5 % (36.0-47.0); Hemoglobin 9.6 g/dL (12.0-16.0); Mean Corpuscular Hemoglobin 33.1 pg (27.0-31.0); Mean Corpuscular Volume 101.7 fL (78.0-98.0); Platelet Count 379 10x3/uL (130-400); Red Blood Cell (RBC) Count 2.90 mill/uL (4.20-5.40); White Blood Cell (WBC) Count 15.44 10x3/uL (4.8-10.8)
[2024-09-19 12:40] LABS: INR-International Normal Ratio 1.3; Prothrombin Time 16.5 sec (12.0-14.7)
[2024-09-19 12:41] LABS: PTT 37.9 sec (22.9-36.1)
[2024-09-19 12:48] LABS: Anion Gap 14 mmol/L (10-20); BUN (Urea Nitrogen) 11 mg/dL (9.8-20.1); Calc. Creatinine Clearance 86 mL/min (70-130); Calcium 9.1 mg/dL (7.8-10.44); Carbon Dioxide 23 mmol/L (23-31); Chloride 102 mmol/L (98-107); Glucose 148 mg/dL (83-110); Potassium 4.3 mmol/L (3.5-5.1); Sodium 135 mmol/L (136-145)
[2024-09-19 12:54] LABS: Anisocytosis SLIGHT = 6-15 cells HPF (0-5); Macrocytosis SLIGHT = 6-15 cells HPF (0-5); Plasma Cells 1 % (0-0); Platelet Adequacy Comment Platelets Normal; Polychromasia SLIGHT = 2-3 cells HPF (0-2); Smudge Cells 1.0 %
[2024-09-20] MEDS: Bisacodyl 10 MG SUPP PR PRN (00:29)
[2024-09-20] MEDS: hydrALAZINE 20 MG/ML VIAL SLOW IVP PRN (06:07)
[2024-09-20] MEDS: Milk Of Magnesia 30 ML UDCUP PO PRN (09:25)
[2024-09-20] MEDS: Amiodarone 200 MG TAB PO SCH (09:26)
[2024-09-20 09:34] LABS: Potassium 4.0 mmol/L (3.5-5.1)
[2024-09-20] MEDS: Digoxin 0.5 MG/2 ML AMP SLOW IVP SCH ×2 (19:25→23:29)
[2024-09-21] MEDS: Digoxin 0.5 MG/2 ML AMP SLOW IVP SCH (05:23)
[2024-09-21] MEDS: Digoxin 0.125 MG TAB PO SCH (08:02)
[2024-09-21 11:41] VITALS: BMI 32.2
[2024-09-21] MEDS: Furosemide 20 MG (2 mL) VIAL SLOW IVP SCH (23:25)
[2024-09-22 06:39] LABS: Bacteria/HPF 4+ HPF (None Seen); CAUTI Indications for Culture Dysuria,urgency,freq; Glucose, Urine (Dipstick) Normal (Negative); Leukocyte 250 Leu/uL (Negative); Protein, Urine (Dipstick) Negative (Neg-Trace); Specific Gravity, Urine 1.008 (1.002-1.036); WBC/HPF 21-50 HPF (0-3)
[2024-09-22 06:40] LABS: Urine Culture Reflex Yes Yes
[2024-09-22] MEDS: Furosemide 40 MG TAB PO SCH (08:35)
[2024-09-22] MEDS: Ondansetron PF 4 MG/2 ML Vial IVP PRN (14:38)
[2024-09-23] MEDS: Furosemide 40 MG (4 mL) VIAL SLOW IVP SCH (11:23)
[2024-09-23] MEDS: Amiodarone 200 MG TAB PO SCH ×2 (11:24→20:10)
[2024-09-24 12:15] VITALS: BP 145/66; TEMP 97.7
== END 2024-09-24 14:45 | disposition home or self-care (01) | DRG 236 ==
LOC: SURG A 09-14 05:42 → CCU 09-14 10:11 → PCU 09-15 13:03
PROVIDERS: ADMIT Thoracic Surgery (Cardiothoracic Vascular Surgery); ATTEND Thoracic Surgery (Cardiothoracic Vascular Surgery)
PROC: 02100Z9 Bypass Coronary Artery, One Artery from Left Internal Mammary, Open Approach (ICD-10-PCS; principal; 2024-09-14)
PROC: 021009W Bypass Coronary Artery, One Artery from Aorta with Autologous Venous Tissue, Open Approach (ICD-10-PCS; 2024-09-14)
PROC: 06BQ4ZZ Excision of Left Saphenous Vein, Percutaneous Endoscopic Approach (ICD-10-PCS; 2024-09-14)
PROC: 0PQ00ZZ Repair Sternum, Open Approach (ICD-10-PCS; 2024-09-14)
PROC: 02L70CK Occlusion of Left Atrial Appendage with Extraluminal Device, Open Approach (ICD-10-PCS; 2024-09-14)
PROC: 5A1221Z Performance of Cardiac Output, Continuous (ICD-10-PCS; 2024-09-14)
PROC: 3E033XZ Introduction of Vasopressor into Peripheral Vein, Percutaneous Approach (ICD-10-PCS; 2024-09-14)
PROC: 3E03329 Introduction of Other Anti-infective into Peripheral Vein, Percutaneous Approach (ICD-10-PCS; 2024-09-14)
PROC: 4A033J1 Measurement of Arterial Pulse, Peripheral, Percutaneous Approach (ICD-10-PCS; 2024-09-14)
DX: I25.10 Atherosclerotic heart disease of native coronary artery without angina pectoris (principal); N39.0 Urinary tract infection, site not specified; I97.190 Other postprocedural cardiac functional disturbances following cardiac surgery; E78.5 Hyperlipidemia, unspecified; I10 Essential (primary) hypertension; J44.9 Chronic obstructive pulmonary disease, unspecified; Z88.8 Allergy status to other drugs, medicaments and biological substances; Z88.5 Allergy status to narcotic agent; Z88.2 Allergy status to sulfonamides; Z79.899 Other long term (current) drug therapy
CPT/HCPCS: 36415; 36416; 36430; 71045; 71046; 80048; 81001; 82805; 84132; 85025; 85610; 85730; 86850; 86900; 86901; 87077; 87086; 87186; 93005; 93010; 93798; 94002; 94640; 97139; A4311; A4648; C1713; C1751; C1889; J0169; J0282; J0360; J0665; J1100; J1160; J1642; J1644; J1650; J1815; J1885; J1940; J2250; J2405; J2440; J2704; J3010; J3370; J3475; J3480; J3490; J7070; J7620; P9045; S0017

== ENCOUNTER 2024-11-21 20:35 | Inpatient (IN) | payer OTHER ==
[~2024-11-21 20:35] MED LIST changes: -ISOVUE-370 76%-LOCM 1 ML ONE; +Iopamidol 370 76% 100 ML VIAL ONE
[2024-11-21] MEDS ORDERED: Acetaminophen 500 MG TAB ONE (21:41)
[2024-11-21 22:48] LABS: ALT (SGPT) 16 U/L (Less than 34); AST (SGOT) 26 U/L (11-34); Albumin 3.6 g/dL (3.1-4.5); Alkaline Phosphatase 160 U/L (40-110); Anion Gap 15 mmol/L (10-20); BUN (Urea Nitrogen) 6 mg/dL (9.8-20.1); Bilirubin, Total 0.8 mg/dL (0.3-1.2); Calc. Creatinine Clearance 0 mL/min (70-130); Calcium 9.4 mg/dL (7.8-10.44); Carbon Dioxide 21 mmol/L (23-31); Chloride 101 mmol/L (98-107); Globulin 4.8 g/dL (2.4-3.5); Glucose 110 mg/dL (83-110); Potassium 3.5 mmol/L (3.5-5.1); Sodium 133 mmol/L (136-145)
[2024-11-21 23:03] LABS: #Basophils 0.08 10x3/uL (0.0-0.2); #Eosinophils 0.08 10x3/uL (0.0-0.7); #Monocytes 2.07 10x3/uL (0.11-0.59); #Neutrophils 11.22 10x3/uL (1.40-6.50); %Basophils 0.4 % (0.0-1.0); %Eosinophils 0.4 % (0.0-10.0); %Lymphocytes 23.8 % (21.0-51.0); %Monocytes 11.6 % (0.0-10.0); %Neutrophils 62.7 % (42.0-75.0); Hematocrit 37.1 % (36.0-47.0); Hemoglobin 12.0 g/dL (12.0-16.0); Mean Corpuscular Hemoglobin 30.0 pg (27.0-31.0); Mean Corpuscular Volume 92.8 fL (78.0-98.0); Platelet Count 312 10x3/uL (130-400); Red Blood Cell (RBC) Count 4.00 mill/uL (4.20-5.40); White Blood Cell (WBC) Count 17.91 10x3/uL (4.8-10.8)
[2024-11-21] MEDS ORDERED: cefTRIAXone (ROCEPHIN) 2 GM VIAL ONE (23:06)
[2024-11-22] MEDS ORDERED: Calcium Carbonate 500 MG ChewTAB PO PRN (04:26)
[2024-11-22] MEDS: Vancomycin 1.5 GM / NS 500ML VIAL-2-BAG IVPB SCH (04:38)
[2024-11-22] MEDS: Guaifenesin DM 100-10/5 ML UDCUP PO PRN (04:41)
[2024-11-22] MEDS: Furosemide 40 MG (4 mL) VIAL SLOW IVP SCH (04:52)
[2024-11-22] MEDS: Amiodarone 200 MG TAB PO SCH (08:08)
[2024-11-22] MEDS: cefTRIAXone\\ROCEPHIN 1 GM in Sodium Chloride 0.9% 100 ML IVPB SCH (08:08)
[2024-11-22] MEDS ORDERED: Amiodarone 200 MG TAB PO SCH (09:00)
[2024-11-22] MEDS: Vancomycin 1 GM in Premix 1 BAG IVPB SCH (11:44)
[2024-11-22] MEDS: Spironolactone 25 MG TAB PO SCH (11:46)
[2024-11-22 14:26] LABS: RBC Count-Automated (BF) 67 /cu.mm; WBC/Nucleated-Auto (BF) 0 /cu.mm
[2024-11-22 14:35] LABS: Fluid, Triglycerides 20.0 mg/dL (Not Available); Pleural Fluid, Amylase 38.0 U/L (Not Available); Pleural Fluid, Glucose 125.0 mg/dL; Pleural Fluid, LDH 122.0 U/L (Not Available); Pleural Fluid, Protein 4.2 g/dL
[2024-11-22 14:43] LABS: Fluid, pH - Pleural Fld Greater than 7.500 (7.60 - 7.66)
[2024-11-22] MEDS: Acetaminophen 325 MG TAB PO PRN (16:27)
[2024-11-22] MEDS ORDERED: Senokot S 8.6-50 MG TAB PO SCH (23:45)
[2024-11-22] MEDS: Milk Of Magnesia 30 ML UDCUP PO SCH (23:46)
[2024-11-23 03:09] LABS: #Basophils 0.06 10x3/uL (0.0-0.2); #Eosinophils 0.06 10x3/uL (0.0-0.7); #Monocytes 1.83 10x3/uL (0.11-0.59); #Neutrophils 11.63 10x3/uL (1.40-6.50); %Basophils 0.4 % (0.0-1.0); %Eosinophils 0.4 % (0.0-10.0); %Lymphocytes 14.6 % (21.0-51.0); %Monocytes 11.4 % (0.0-10.0); %Neutrophils 72.3 % (42.0-75.0); Hematocrit 38.7 % (36.0-47.0); Hemoglobin 12.2 g/dL (12.0-16.0); Mean Corpuscular Hemoglobin 29.2 pg (27.0-31.0); Mean Corpuscular Volume 92.6 fL (78.0-98.0); Platelet Count 320 10x3/uL (130-400); Red Blood Cell (RBC) Count 4.18 mill/uL (4.20-5.40); White Blood Cell (WBC) Count 16.06 10x3/uL (4.8-10.8)
[2024-11-23 03:52] LABS: Vancomycin, Random 12.4 ug/mL (See Comment)
[2024-11-23 03:58] LABS: ALT (SGPT) 19 U/L (Less than 34); AST (SGOT) 25 U/L (11-34); Albumin 2.9 g/dL (3.1-4.5); Alkaline Phosphatase 136 U/L (40-110); Anion Gap 17 mmol/L (10-20); BUN (Urea Nitrogen) 9 mg/dL (9.8-20.1); Bilirubin, Total 0.7 mg/dL (0.3-1.2); Calc. Creatinine Clearance 79 mL/min (70-130); Calcium 9.2 mg/dL (7.8-10.44); Carbon Dioxide 25 mmol/L (23-31); Chloride 98 mmol/L (98-107); Globulin 4.1 g/dL (2.4-3.5); Glucose 126 mg/dL (83-110); Potassium 3.4 mmol/L (3.5-5.1); Sodium 137 mmol/L (136-145)
[2024-11-23] MEDS: Ondansetron PF 4 MG/2 ML Vial IVP PRN (05:14)
[2024-11-23] MEDS: Furosemide 40 MG (4 mL) VIAL SLOW IVP SCH (10:20)
[2024-11-23] MEDS: Spironolactone 25 MG TAB PO SCH (10:21)
[2024-11-23] MEDS: Vancomycin 1.5 GM / NS 500ML VIAL-2-BAG IVPB SCH (11:51)
[2024-11-23] MEDS: Vancomycin 1 GM in Premix 1 BAG IVPB SCH (23:28)
[2024-11-24 03:35] LABS: #Basophils 0.07 10x3/uL (0.0-0.2); #Eosinophils 0.37 10x3/uL (0.0-0.7); #Monocytes 1.67 10x3/uL (0.11-0.59); #Neutrophils 6.28 10x3/uL (1.40-6.50); %Basophils 0.6 % (0.0-1.0); %Eosinophils 3.2 % (0.0-10.0); %Lymphocytes 26.0 % (21.0-51.0); %Monocytes 14.5 % (0.0-10.0); %Neutrophils 54.5 % (42.0-75.0); Hematocrit 35.7 % (36.0-47.0); Hemoglobin 11.1 g/dL (12.0-16.0); Mean Corpuscular Hemoglobin 29.5 pg (27.0-31.0); Mean Corpuscular Volume 94.9 fL (78.0-98.0); Platelet Count 284 10x3/uL (130-400); Red Blood Cell (RBC) Count 3.76 mill/uL (4.20-5.40); White Blood Cell (WBC) Count 11.52 10x3/uL (4.8-10.8)
[2024-11-24 03:53] LABS: Vancomycin, Random 34.9 ug/mL (See Comment)
[2024-11-24 03:57] LABS: Anion Gap 16 mmol/L (10-20); BUN (Urea Nitrogen) 9 mg/dL (9.8-20.1); Calc. Creatinine Clearance 78 mL/min (70-130); Calcium 8.7 mg/dL (7.8-10.44); Carbon Dioxide 23 mmol/L (23-31); Chloride 101 mmol/L (98-107); Glucose 96 mg/dL (83-110); Magnesium 2.2 mg/dL (1.6-2.6); Potassium 4.3 mmol/L (3.5-5.1); Sodium 136 mmol/L (136-145)
[2024-11-24] MEDS: Furosemide 40 MG (4 mL) VIAL SLOW IVP SCH (09:08)
[2024-11-24] MEDS: Milk Of Magnesia 30 ML UDCUP PO SCH (12:00)
[2024-11-24] MEDS: Vancomycin HCl 1.25 GM in Sodium Chloride 0.9% 250 ML 250 ML IVPB SCH (20:40)
[2024-11-25 04:28] LABS: #Basophils 0.09 10x3/uL (0.0-0.2); #Eosinophils 0.29 10x3/uL (0.0-0.7); #Monocytes 1.24 10x3/uL (0.11-0.59); #Neutrophils 5.00 10x3/uL (1.40-6.50); %Basophils 0.9 % (0.0-1.0); %Eosinophils 2.9 % (0.0-10.0); %Lymphocytes 32.0 % (21.0-51.0); %Monocytes 12.5 % (0.0-10.0); %Neutrophils 50.6 % (42.0-75.0); Hematocrit 37.2 % (36.0-47.0); Hemoglobin 11.5 g/dL (12.0-16.0); Mean Corpuscular Hemoglobin 29.6 pg (27.0-31.0); Mean Corpuscular Volume 95.6 fL (78.0-98.0); Platelet Count 347 10x3/uL (130-400); Red Blood Cell (RBC) Count 3.89 mill/uL (4.20-5.40); White Blood Cell (WBC) Count 9.89 10x3/uL (4.8-10.8)
[2024-11-25 04:39] LABS: CRP, High Sensitivity at Bryan 13.16 mg/dL (< or = 0.5)
[2024-11-25 04:41] LABS: ALT (SGPT) 28 U/L (Less than 34); AST (SGOT) 34 U/L (11-34); Albumin 2.7 g/dL (3.1-4.5); Alkaline Phosphatase 129 U/L (40-110); Anion Gap 14 mmol/L (10-20); BUN (Urea Nitrogen) 11 mg/dL (9.8-20.1); Bilirubin, Total 0.5 mg/dL (0.3-1.2); Calc. Creatinine Clearance 74 mL/min (70-130); Calcium 9.0 mg/dL (7.8-10.44); Carbon Dioxide 25 mmol/L (23-31); Chloride 102 mmol/L (98-107); Globulin 4.4 g/dL (2.4-3.5); Glucose 109 mg/dL (83-110); Potassium 4.2 mmol/L (3.5-5.1); Sodium 137 mmol/L (136-145); Vancomycin, Random 16.4 ug/mL (See Comment)
[2024-11-25] MEDS: cefTRIAXone (ROCEPHIN) 1 GM VIAL ONE (09:21)
[2024-11-26 04:09] LABS: #Basophils 0.11 10x3/uL (0.0-0.2); #Eosinophils 0.26 10x3/uL (0.0-0.7); #Monocytes 1.31 10x3/uL (0.11-0.59); #Neutrophils 7.73 10x3/uL (1.40-6.50); %Basophils 0.9 % (0.0-1.0); %Eosinophils 2.1 % (0.0-10.0); %Lymphocytes 23.7 % (21.0-51.0); %Monocytes 10.4 % (0.0-10.0); %Neutrophils 61.6 % (42.0-75.0); Hematocrit 39.2 % (36.0-47.0); Hemoglobin 12.5 g/dL (12.0-16.0); Mean Corpuscular Hemoglobin 29.6 pg (27.0-31.0); Mean Corpuscular Volume 92.7 fL (78.0-98.0); Platelet Count 382 10x3/uL (130-400); Red Blood Cell (RBC) Count 4.23 mill/uL (4.20-5.40); White Blood Cell (WBC) Count 12.54 10x3/uL (4.8-10.8)
[2024-11-26 04:39] LABS: Anion Gap 15 mmol/L (10-20); BUN (Urea Nitrogen) 13 mg/dL (9.8-20.1); Calc. Creatinine Clearance 73 mL/min (70-130); Calcium 9.6 mg/dL (7.8-10.44); Carbon Dioxide 26 mmol/L (23-31); Chloride 96 mmol/L (98-107); Glucose 121 mg/dL (83-110); Magnesium 2.4 mg/dL (1.6-2.6); Potassium 4.4 mmol/L (3.5-5.1); Sodium 133 mmol/L (136-145)
[2024-11-26] MEDS: Milk Of Magnesia 30 ML UDCUP PO PRN (16:22)
[2024-11-27 03:58] LABS: #Basophils 0.10 10x3/uL (0.0-0.2); #Eosinophils 0.28 10x3/uL (0.0-0.7); #Monocytes 1.62 10x3/uL (0.11-0.59); #Neutrophils 7.73 10x3/uL (1.40-6.50); %Basophils 0.8 % (0.0-1.0); %Eosinophils 2.3 % (0.0-10.0); %Lymphocytes 19.7 % (21.0-51.0); %Monocytes 13.0 % (0.0-10.0); %Neutrophils 62.3 % (42.0-75.0); Hematocrit 39.1 % (36.0-47.0); Hemoglobin 12.3 g/dL (12.0-16.0); Mean Corpuscular Hemoglobin 29.2 pg (27.0-31.0); Mean Corpuscular Volume 92.9 fL (78.0-98.0); Platelet Count 434 10x3/uL (130-400); Red Blood Cell (RBC) Count 4.21 mill/uL (4.20-5.40); White Blood Cell (WBC) Count 12.42 10x3/uL (4.8-10.8)
[2024-11-27 04:25] LABS: Anion Gap 19 mmol/L (10-20); BUN (Urea Nitrogen) 21 mg/dL (9.8-20.1); Calc. Creatinine Clearance 46 mL/min (70-130); Calcium 9.7 mg/dL (7.8-10.44); Carbon Dioxide 25 mmol/L (23-31); Chloride 92 mmol/L (98-107); Glucose 176 mg/dL (83-110); Potassium 4.4 mmol/L (3.5-5.1); Sodium 132 mmol/L (136-145)
[2024-11-27] MEDS: Amoxicillin/Potassium Clav 500 MG TAB PO SCH (17:11)
[2024-11-27] MEDS: Fluconazole 100 MG TAB PO SCH (17:11)
[2024-11-28 04:12] LABS: #Basophils 0.11 10x3/uL (0.0-0.2); #Eosinophils 0.33 10x3/uL (0.0-0.7); #Monocytes 1.70 10x3/uL (0.11-0.59); #Neutrophils 7.00 10x3/uL (1.40-6.50); %Basophils 0.8 % (0.0-1.0); %Eosinophils 2.5 % (0.0-10.0); %Lymphocytes 27.9 % (21.0-51.0); %Monocytes 13.0 % (0.0-10.0); %Neutrophils 53.4 % (42.0-75.0); Hematocrit 39.9 % (36.0-47.0); Hemoglobin 12.4 g/dL (12.0-16.0); Mean Corpuscular Hemoglobin 28.7 pg (27.0-31.0); Mean Corpuscular Volume 92.4 fL (78.0-98.0); Platelet Count 453 10x3/uL (130-400); Red Blood Cell (RBC) Count 4.32 mill/uL (4.20-5.40); White Blood Cell (WBC) Count 13.12 10x3/uL (4.8-10.8)
[2024-11-28 04:35] LABS: Anion Gap 17 mmol/L (10-20); BUN (Urea Nitrogen) 26 mg/dL (9.8-20.1); Calc. Creatinine Clearance 41 mL/min (70-130); Calcium 10.1 mg/dL (7.8-10.44); Carbon Dioxide 28 mmol/L (23-31); Chloride 89 mmol/L (98-107); Glucose 176 mg/dL (83-110); Potassium 4.1 mmol/L (3.5-5.1); Sodium 130 mmol/L (136-145)
[2024-11-28] MEDS: Amoxicillin/Potassium Clav 500 MG TAB PO SCH (08:29)
[2024-11-28 12:49] VITALS: BP 132/82; TEMP 97.5
== END 2024-11-28 15:30 | disposition home or self-care (01) | DRG 291 ==
LOC: ERS 20:35 → PCU 11-22 03:19
PROVIDERS: ADMIT Student in an Organized Health Care Education/Training Program; ATTEND Internal Medicine
PROC: 0W9B3ZZ Drainage of Left Pleural Cavity, Percutaneous Approach (ICD-10-PCS; principal; 2024-11-22)
PROC: 3E03329 Introduction of Other Anti-infective into Peripheral Vein, Percutaneous Approach (ICD-10-PCS; 2024-11-24)
DX: I11.0 Hypertensive heart disease with heart failure (principal); I50.33 Acute on chronic diastolic (congestive) heart failure; J18.9 Pneumonia, unspecified organism; J90 Pleural effusion, not elsewhere classified; I25.10 Atherosclerotic heart disease of native coronary artery without angina pectoris; I48.91 Unspecified atrial fibrillation; E78.00 Pure hypercholesterolemia, unspecified; I35.0 Nonrheumatic aortic (valve) stenosis; E66.9 Obesity, unspecified; Z68.29 Body mass index [BMI] 29.0-29.9, adult; Z95.1 Presence of aortocoronary bypass graft; Z88.8 Allergy status to other drugs, medicaments and biological substances; Z88.5 Allergy status to narcotic agent; Z88.2 Allergy status to sulfonamides; Z98.890 Other specified postprocedural states; Z98.891 History of uterine scar from previous surgery; Z90.710 Acquired absence of both cervix and uterus; Z79.82 Long term (current) use of aspirin; Z79.899 Other long term (current) drug therapy
CPT/HCPCS: 36415; 71045; 71275; 80048; 80053; 80202; 82150; 82945; 83605; 83615; 83735; 83880; 83986; 84145; 84157; 84478; 84484; 85025; 86141; 87040; 87081; 87116; 87149; 87206; 87428; 88112; 88305; 89051; 93005; 93306; 96365; 96366; 96367; 97139; J0696; J1642; J1940; J3373; J7030; J7050; Q0162; Q9967

== ENCOUNTER 2024-12-07 15:33 | Outpatient (CLI) | payer OTHER | END 2024-12-07 15:34 | disposition home or self-care (01) | LOC: BICRAD 15:33 | PROVIDERS: ATTEND Family Medicine | DX: J81.1 Chronic pulmonary edema (principal); R53.83 Other fatigue | CPT/HCPCS: 36415; 71046; 80053; 85025 ==

== ENCOUNTER 2025-01-26 17:11 | Emergency (ER) | payer MEDICARE, OTHER | END 2025-01-26 18:30 | disposition home or self-care (01) | LOC: ERS 17:11 | DX: R21 Rash and other nonspecific skin eruption (principal); I25.10 Atherosclerotic heart disease of native coronary artery without angina pectoris; Z86.73 Personal history of transient ischemic attack (TIA), and cerebral infarction without residual deficits; E78.00 Pure hypercholesterolemia, unspecified; I10 Essential (primary) hypertension; I48.91 Unspecified atrial fibrillation; Z79.82 Long term (current) use of aspirin; Z79.899 Other long term (current) drug therapy | CPT/HCPCS: 96372; 99282; J2919 ==